=== PATIENT | male | born 1955 | race Hispanic/Latino ===

== ENCOUNTER → 2025-01-21 | Outpatient (CLI) | payer OTHER | END | disposition home or self-care (01) | LOC: RAH 14:50 | PROVIDERS: ATTEND Internal Medicine Cardiovascular Disease | DX: I35.1 Nonrheumatic aortic (valve) insufficiency (principal); I35.0 Nonrheumatic aortic (valve) stenosis; I51.7 Cardiomegaly; R01.1 Cardiac murmur, unspecified | CPT/HCPCS: 93306 ==